=== PATIENT | female | born 1980 ===

== ENCOUNTER 2022-11-01 01:59 | Inpatient (IN) | payer BC, OTHER ==
[2022-11-01 06:38] VITALS: BMI 31.4
[2022-11-01] MEDS ORDERED: HYDROcodone/Acetaminophen 5/325 mg Tablet PO PRN (09:29)
[2022-11-01] MEDS ORDERED: Nortriptyline HCl 25 MG CAP PO PRN (09:41)
[2022-11-01] MEDS ORDERED: predniSONE 20 MG TAB PO SCH (10:15)
[2022-11-01] MEDS ORDERED: Sodium Chloride 0.9% 1,000 ML IV SCH (10:15)
[2022-11-01] MEDS ORDERED: Lorazepam 2 MG/ML VIAL IM PRN (10:49)
[2022-11-01] MEDS ORDERED: Lorazepam 1 MG TAB PO PRN (10:49)
[2022-11-01] MEDS ORDERED: Electrolyte Replacement Protocol 1 EACH FS SCH (11:00)
[2022-11-01] MEDS: cefTRIAXone\\ROCEPHIN 1 GM in Sodium Chloride 0.9% 100 ML IVPB SCH (11:07)
[2022-11-01] MEDS: Thiamine HCl 200 MG/2 ML VIAL SLOW IVP SCH (11:16)
[2022-11-01] MEDS: Lorazepam 1 MG TAB PO SCH ×3 (11:18→23:36)
[2022-11-01 11:49] LABS: Bilirubin, Direct 8.5 mg/dL (0.1-0.3); Phosphorus 4.3 mg/dL (2.3-4.7)
[2022-11-01 11:51] LABS: ALT (SGPT) 49 U/L (8-55); AST (SGOT) 136 U/L (5-34); Albumin 2.2 g/dL (3.5-5.0); Alcohol Less than 10.0 mg/dL (Less than 10); Alkaline Phosphatase 330 U/L (40-110); Anion Gap 13 mmol/L (10-20); BUN (Urea Nitrogen) Less than 4 mg/dL (7.0-18.7); Bilirubin, Total 10.6 mg/dL (0.2-1.2); Calc. Creatinine Clearance 151 mL/min (70-130); Calcium 8.1 mg/dL (7.8-10.44); Carbon Dioxide 26 mmol/L (22-29); Chloride 102 mmol/L (98-107); Estimated GFR 111; Glucose 116 mg/dL (70-105); Magnesium 1.7 mg/dL (1.6-2.6); Potassium 2.9 mmol/L (3.5-5.1); Protein, Total 5.2 g/dL (6.0-8.3); Sodium 138 mmol/L (136-145)
[2022-11-01 11:54] LABS: #Monocytes 0.1 thou/uL (0.11-0.59); #Neutrophils 2.5 thou/uL (1.40-6.50); %Lymphocytes 23.3 % (21.0-51.0); %Monocytes 3.8 % (0.0-10.0); %Neutrophils 72.6 % (42.0-75.0); Hematocrit 34.8 % (36.0-47.0); Hemoglobin 12.2 g/dL (12.0-16.0); Mean Corpuscular HGB CONC 35.1 g/dL (32.0-36.0); Mean Corpuscular Hemoglobin 33.9 pg (27.0-31.0); Mean Corpuscular Volume 96.7 fl (78.0-98.0); Mean Platelet Volume 11.2 fL (7.4-10.4); RBC Distribution Width 15.9 % (11.5-14.5); White Blood Cell (WBC) Count 3.4 10x3/uL (4.8-10.8)
[2022-11-01 11:55] LABS: INR-International Normal Ratio 1.9; Prothrombin Time 22.2 sec (12.0-14.7)
[2022-11-01 11:56] LABS: PTT 49.2 sec (22.9-36.1)
[2022-11-01 11:58] LABS: Platelet Count 64 10x3/uL (130-400)
[2022-11-01] MEDS ORDERED: Cyanocobalamin 1000 MCG/ML VIAL IM SCH (12:00)
[2022-11-01 12:08] LABS: HBCM Index 0.12 S/CO (0-0.79); HBSAg Index 0.28 S/CO (0-0.99); Hep A IgM AB Non-Reactive S/CO (NonReactive); Hep A IgM S/CO 0.28 S/CO (0-0.79); Hep B Surf Ag Non-Reactive S/CO (NonReactive); Hep C IgG Ab Non-Reactive S/CO (NonReactive); Hep C Index 0.12 S/CO (0-0.79); Hepatitis B Core IgM Abs Non-Reactive S/CO (NonReactive)
[2022-11-01 12:46] LABS: Bacteria/HPF None Seen HPF (None Seen); Bilirubin 2+ (Negative); Blood, Urine Negative (Negative); CAUTI Indications for Culture Dysuria,urgency,freq; Clarity Clear (Clear); Glucose, Urine (Dipstick) Normal (Negative); Ketone, Urine Negative (Negative); Leukocyte Negative Leu/uL (Negative); Nitrite Negative (Negative); Protein, Urine (Dipstick) Negative (Neg-Trace); RBC/HPF 0-3 HPF (0-3); Specific Gravity, Urine 1.024 (1.002-1.036); Squamous Epithelial 0-3 HPF (0-3); Urobilinogen Normal mg/dL (Less than 2); WBC/HPF 0-3 HPF (0-3)
[2022-11-01 12:54] LABS: Urine Culture Reflex No No
[2022-11-01] MEDS ORDERED: Magnesium 2 GM/50 ML(in water) 2 GM in Premix Bag 1 BAG IVPB SCH (14:00)
[2022-11-01] MEDS: Multivitamins, Adult 10 ML, Folic Acid 1 MG, Thiamine HCl 100 MG in Dextrose 5 %-0.45 %... IV SCH (14:54)
[2022-11-01] MEDS: Potassium Chloride 20 MEQ TAB PO SCH ×2 (14:54→17:31)
[2022-11-01] MEDS: Famotidine 20 MG TAB PO SCH (21:39)
[2022-11-01] MEDS: Metoprolol Tartrate 25 MG TAB PO SCH (21:43)
[2022-11-02] MEDS: Lorazepam 1 MG TAB PO SCH ×4 (05:02→22:46)
[2022-11-02 05:56] LABS: #Monocytes 0.5 thou/uL (0.11-0.59); #Neutrophils 3.5 thou/uL (1.40-6.50); %Lymphocytes 26.3 % (21.0-51.0); %Monocytes 8.8 % (0.0-10.0); %Neutrophils 64.5 % (42.0-75.0); Hematocrit 29.7 % (36.0-47.0); Hemoglobin 10.4 g/dL (12.0-16.0); Mean Corpuscular Hemoglobin 33.7 pg (27.0-31.0); Mean Corpuscular Volume 96.1 fl (78.0-98.0); Mean Platelet Volume 10.7 fL (7.4-10.4); RBC Distribution Width 16.1 % (11.5-14.5); Red Blood Cell (RBC) Count 3.09 mill/uL (4.20-5.40); White Blood Cell (WBC) Count 5.5 10x3/uL (4.8-10.8)
[2022-11-02 06:03] LABS: Platelet Count 65 10x3/uL (130-400)
[2022-11-02 06:29] LABS: ALT (SGPT) 40 U/L (8-55); AST (SGOT) 107 U/L (5-34); Albumin 1.7 g/dL (3.5-5.0); Alkaline Phosphatase 261 U/L (40-110); Anion Gap 9 mmol/L (10-20); BUN (Urea Nitrogen) Less than 4 mg/dL (7.0-18.7); Bilirubin, Total 9.4 mg/dL (0.2-1.2); Calc. Creatinine Clearance 168 mL/min (70-130); Calcium 7.6 mg/dL (7.8-10.44); Carbon Dioxide 25 mmol/L (22-29); Chloride 107 mmol/L (98-107); Estimated GFR 114; Globulin 2.6 g/dL (2.4-3.5); Glucose 92 mg/dL (70-105); Protein, Total 4.3 g/dL (6.0-8.3); Sodium 138 mmol/L (136-145)
[2022-11-02] MEDS ORDERED: Electrolyte Replacement Protocol 1 EACH FS ONE (07:37)
[2022-11-02] MEDS ORDERED: Potassium Chloride 20 MEQ TAB PO SCH (08:00)
[2022-11-02] MEDS ORDERED: predniSONE 20 MG TAB PO SCH (08:00)
[2022-11-02 09:25] LABS: INR-International Normal Ratio 1.9; Prothrombin Time 22.6 sec (12.0-14.7)
[2022-11-02 09:26] LABS: PTT 95.2 sec (22.9-36.1)
[2022-11-02] MEDS: Metoprolol Tartrate 25 MG TAB PO SCH ×2 (09:33→21:05)
[2022-11-02] MEDS: Topiramate 25 MG TAB PO SCH (09:35)
[2022-11-02] MEDS: Famotidine 20 MG TAB PO SCH ×2 (09:36→21:07)
[2022-11-02] MEDS: Folic Acid 1 MG TAB PO SCH (09:36)
[2022-11-02] MEDS: Multivit, Therapeutic 1 TAB PO SCH (09:36)
[2022-11-02] MEDS: prednisoLONE 10 MG ODT TAB PO SCH (09:36)
[2022-11-02] MEDS: Escitalopram Oxalate 20 mg Tablet PO SCH (09:36)
[2022-11-02] MEDS ORDERED: Lorazepam 1 MG TAB PO PRN (10:50)
[2022-11-02] MEDS ORDERED: Furosemide 20 MG/2 ML VIAL SLOW IVP SCH (12:45)
[2022-11-02] MEDS: cefTRIAXone\\ROCEPHIN 1 GM in Sodium Chloride 0.9% 100 ML IVPB SCH (12:59)
[2022-11-02] MEDS: Thiamine HCl 200 MG/2 ML VIAL SLOW IVP SCH (13:00)
[2022-11-02] MEDS: Multivitamins, Adult 10 ML, Folic Acid 1 MG, Thiamine HCl 100 MG in Dextrose 5 %-0.45 %... IV SCH (15:27)
[2022-11-02] MEDS ORDERED: Polyethylene Glycol 3350 17 GM Packet PO SCH (17:45)
[2022-11-02] MEDS ORDERED: Ondansetron PF 4 MG/2 ML Vial IVP PRN (17:46)
[2022-11-03 05:00] LABS: #Monocytes 0.5 thou/uL (0.11-0.59); #Neutrophils 3.6 thou/uL (1.40-6.50); %Basophils 0.2 % (0.0-1.0); %Lymphocytes 28.8 % (21.0-51.0); %Monocytes 7.7 % (0.0-10.0); %Neutrophils 61.9 % (42.0-75.0); Hematocrit 30.3 % (36.0-47.0); Hemoglobin 10.5 g/dL (12.0-16.0); Mean Corpuscular HGB CONC 34.7 g/dL (32.0-36.0); Mean Corpuscular Volume 98.1 fl (78.0-98.0); Mean Platelet Volume 10.8 fL (7.4-10.4); RBC Distribution Width 16.7 % (11.5-14.5); Red Blood Cell (RBC) Count 3.09 mill/uL (4.20-5.40); White Blood Cell (WBC) Count 5.9 10x3/uL (4.8-10.8)
[2022-11-03 05:08] LABS: Platelet Count 72 10x3/uL (130-400)
[2022-11-03 05:10] LABS: INR-International Normal Ratio 1.5; PTT 36.6 sec (22.9-36.1)
[2022-11-03 05:22] LABS: ALT (SGPT) 38 U/L (8-55); AST (SGOT) 105 U/L (5-34); Albumin 1.7 g/dL (3.5-5.0); Alkaline Phosphatase 254 U/L (40-110); Anion Gap 11 mmol/L (10-20); BUN (Urea Nitrogen) Less than 4 mg/dL (7.0-18.7); Bilirubin, Total 11.5 mg/dL (0.2-1.2); Calc. Creatinine Clearance 151 mL/min (70-130); Calcium 7.8 mg/dL (7.8-10.44); Carbon Dioxide 24 mmol/L (22-29); Chloride 108 mmol/L (98-107); Estimated GFR 111; Globulin 2.7 g/dL (2.4-3.5); Glucose 79 mg/dL (70-105); Protein, Total 4.4 g/dL (6.0-8.3); Sodium 140 mmol/L (136-145)
[2022-11-03] MEDS: Lorazepam 1 MG TAB PO SCH (05:25)
[2022-11-03] MEDS ORDERED: Potassium Chloride 20 MEQ TAB PO SCH ×2 (08:00)
[2022-11-03] MEDS: Famotidine 20 MG TAB PO SCH ×2 (08:26→21:14)
[2022-11-03] MEDS: Topiramate 25 MG TAB PO SCH (08:26)
[2022-11-03] MEDS: Multivit, Therapeutic 1 TAB PO SCH (08:26)
[2022-11-03] MEDS: Folic Acid 1 MG TAB PO SCH (08:26)
[2022-11-03] MEDS: Escitalopram Oxalate 20 mg Tablet PO SCH (08:27)
[2022-11-03] MEDS: prednisoLONE 10 MG ODT TAB PO SCH (08:30)
[2022-11-03] MEDS: Polyethylene Glycol 3350 17 GM Packet PO SCH (08:30)
[2022-11-03] MEDS: Metoprolol Tartrate 25 MG TAB PO SCH ×2 (08:31→21:13)
[2022-11-03] MEDS: Furosemide 20 MG/2 ML VIAL SLOW IVP SCH (08:35)
[2022-11-03] MEDS ORDERED: Furosemide 20 MG/2 ML VIAL SLOW IVP SCH (09:00)
[2022-11-03] MEDS ORDERED: Lorazepam 1 MG TAB PO PRN (10:50)
[2022-11-03] MEDS: cefTRIAXone\\ROCEPHIN 1 GM in Sodium Chloride 0.9% 100 ML IVPB SCH (11:36)
[2022-11-03] MEDS: Lorazepam 0.5 MG TAB PO SCH ×3 (11:36→22:21)
[2022-11-03] MEDS: Thiamine HCl 200 MG/2 ML VIAL SLOW IVP SCH (12:44)
[2022-11-03] MEDS: Multivitamins, Adult 10 ML, Folic Acid 1 MG, Thiamine HCl 100 MG in Dextrose 5 %-0.45 %... IV SCH (12:44)
[2022-11-03] MEDS ORDERED: Bisacodyl 5 MG TAB PO PRN (22:13)
[2022-11-04] MEDS: Lorazepam 0.5 MG TAB PO SCH (04:54)
[2022-11-04 05:26] LABS: Hematocrit 31.2 % (36.0-47.0); Hemoglobin 10.7 g/dL (12.0-16.0)
[2022-11-04 05:49] LABS: ALT (SGPT) 39 U/L (8-55); AST (SGOT) 112 U/L (5-34); Albumin 1.8 g/dL (3.5-5.0); Alkaline Phosphatase 249 U/L (40-110); Anion Gap 11 mmol/L (10-20); BUN (Urea Nitrogen) Less than 4 mg/dL (7.0-18.7); Bilirubin, Total 12.8 mg/dL (0.2-1.2); Calc. Creatinine Clearance 142 mL/min (70-130); Calcium 7.6 mg/dL (7.8-10.44); Carbon Dioxide 22 mmol/L (22-29); Chloride 107 mmol/L (98-107); Estimated GFR 107; Globulin 2.8 g/dL (2.4-3.5); Glucose 67 mg/dL (70-105); Potassium 2.7 mmol/L (3.5-5.1); Protein, Total 4.6 g/dL (6.0-8.3); Sodium 137 mmol/L (136-145)
[2022-11-04 06:25] LABS: INR-International Normal Ratio 1.5; Prothrombin Time 18.3 sec (12.0-14.7)
[2022-11-04] MEDS ORDERED: Potassium Chloride 20 MEQ TAB PO SCH (08:00)
[2022-11-04] MEDS: Escitalopram Oxalate 20 mg Tablet PO SCH (08:47)
[2022-11-04] MEDS: Furosemide 20 MG/2 ML VIAL SLOW IVP SCH (08:47)
[2022-11-04] MEDS: Multivit, Therapeutic 1 TAB PO SCH (08:47)
[2022-11-04] MEDS: prednisoLONE 10 MG ODT TAB PO SCH (08:47)
[2022-11-04] MEDS: Folic Acid 1 MG TAB PO SCH (08:47)
[2022-11-04] MEDS: Metoprolol Tartrate 25 MG TAB PO SCH ×2 (08:47→20:18)
[2022-11-04] MEDS: Topiramate 25 MG TAB PO SCH (08:47)
[2022-11-04] MEDS: Polyethylene Glycol 3350 17 GM Packet PO SCH (08:47)
[2022-11-04] MEDS: Potassium Chloride 20 MEQ TAB PO SCH ×3 (09:24→17:59)
[2022-11-04] MEDS: cefTRIAXone\\ROCEPHIN 1 GM in Sodium Chloride 0.9% 100 ML IVPB SCH (10:05)
[2022-11-04] MEDS: Thiamine 100 MG TAB PO SCH (10:05)
[2022-11-04] MEDS ORDERED: Lorazepam 0.5 MG TAB PO PRN (10:50)
[2022-11-04] MEDS: Multivitamins, Adult 10 ML, Folic Acid 1 MG, Thiamine HCl 100 MG in Dextrose 5 %-0.45 %... IV SCH (13:05)
[2022-11-04 21:27] LABS: Potassium 3.7 mmol/L (3.5-5.1)
[2022-11-05 05:51] LABS: #Monocytes 0.4 thou/uL (0.11-0.59); #Neutrophils 3.3 thou/uL (1.40-6.50); %Basophils 0.2 % (0.0-1.0); %Eosinophils 0.3 % (0.0-10.0); %Lymphocytes 34.1 % (21.0-51.0); %Neutrophils 53.8 % (42.0-75.0); Hematocrit 31.9 % (36.0-47.0); Hemoglobin 10.8 g/dL (12.0-16.0); Mean Corpuscular HGB CONC 33.9 g/dL (32.0-36.0); Mean Corpuscular Hemoglobin 33.9 pg (27.0-31.0); Mean Platelet Volume 10.2 fL (7.4-10.4); Red Blood Cell (RBC) Count 3.19 mill/uL (4.20-5.40); White Blood Cell (WBC) Count 6.1 10x3/uL (4.8-10.8)
[2022-11-05 06:19] LABS: Platelet Count 95 10x3/uL (130-400)
[2022-11-05 06:31] LABS: INR-International Normal Ratio 1.3
[2022-11-05 06:32] LABS: PTT 32.5 sec (22.9-36.1)
[2022-11-05 06:35] LABS: ALT (SGPT) 44 U/L (8-55); AST (SGOT) 119 U/L (5-34); Albumin 1.7 g/dL (3.5-5.0); Alkaline Phosphatase 234 U/L (40-110); Anion Gap 10 mmol/L (10-20); BUN (Urea Nitrogen) Less than 4 mg/dL (7.0-18.7); Calc. Creatinine Clearance 171 mL/min (70-130); Carbon Dioxide 22 mmol/L (22-29); Chloride 110 mmol/L (98-107); Estimated GFR 115; Glucose 68 mg/dL (70-105); Potassium 3.5 mmol/L (3.5-5.1); Protein, Total 4.7 g/dL (6.0-8.3); Sodium 138 mmol/L (136-145)
[2022-11-05] MEDS ORDERED: Potassium Chloride 20 MEQ TAB PO SCH (08:00)
[2022-11-05] MEDS: Furosemide 20 MG/2 ML VIAL SLOW IVP SCH (08:30)
[2022-11-05] MEDS: Metoprolol Tartrate 25 MG TAB PO SCH ×2 (08:31→20:47)
[2022-11-05] MEDS: Multivit, Therapeutic 1 TAB PO SCH (08:31)
[2022-11-05] MEDS: Topiramate 25 MG TAB PO SCH (08:31)
[2022-11-05] MEDS: Escitalopram Oxalate 20 mg Tablet PO SCH (08:31)
[2022-11-05] MEDS: Folic Acid 1 MG TAB PO SCH (08:31)
[2022-11-05] MEDS: prednisoLONE 10 MG ODT TAB PO SCH (08:33)
[2022-11-05] MEDS: cefTRIAXone\\ROCEPHIN 1 GM in Sodium Chloride 0.9% 100 ML IVPB SCH (11:56)
[2022-11-05] MEDS: Thiamine 100 MG TAB PO SCH (11:57)
[2022-11-05] MEDS: Multivitamins, Adult 10 ML, Folic Acid 1 MG, Thiamine HCl 100 MG in Dextrose 5 %-0.45 %... IV SCH (12:22)
[2022-11-06 07:07] LABS: INR-International Normal Ratio 1.3; Prothrombin Time 16.2 sec (12.0-14.7)
[2022-11-06 07:08] LABS: PTT 30.4 sec (22.9-36.1)
[2022-11-06 07:21] LABS: ALT (SGPT) 48 U/L (8-55); AST (SGOT) 128 U/L (5-34); Albumin 1.8 g/dL (3.5-5.0); Alkaline Phosphatase 230 U/L (40-110); Anion Gap 9 mmol/L (10-20); BUN (Urea Nitrogen) Less than 4 mg/dL (7.0-18.7); Bilirubin, Total 17.5 mg/dL (0.2-1.2); Calc. Creatinine Clearance 160 mL/min (70-130); Calcium 8.1 mg/dL (7.8-10.44); Carbon Dioxide 26 mmol/L (22-29); Chloride 106 mmol/L (98-107); Estimated GFR 113; Globulin 3.2 g/dL (2.4-3.5); Glucose 74 mg/dL (70-105); Sodium 138 mmol/L (136-145)
[2022-11-06] MEDS ORDERED: Potassium Chloride 20 MEQ TAB PO SCH (08:00)
[2022-11-06] MEDS ORDERED: Magnesium Oxide 400 MG TAB PO SCH (08:30)
[2022-11-06] MEDS ORDERED: Potassium Bicarbonate/Cit Ac 20 MEQ TAB PO SCH (08:30)
[2022-11-06] MEDS: Thiamine 100 MG TAB PO SCH (09:08)
[2022-11-06] MEDS: Folic Acid 1 MG TAB PO SCH (09:09)
[2022-11-06] MEDS: Metoprolol Tartrate 25 MG TAB PO SCH (09:09)
[2022-11-06] MEDS: Escitalopram Oxalate 20 mg Tablet PO SCH (09:09)
[2022-11-06] MEDS: Multivit, Therapeutic 1 TAB PO SCH (09:09)
[2022-11-06] MEDS: Topiramate 25 MG TAB PO SCH (09:09)
[2022-11-06] MEDS: Furosemide 20 MG/2 ML VIAL SLOW IVP SCH (09:09)
[2022-11-06] MEDS: cefTRIAXone\\ROCEPHIN 1 GM in Sodium Chloride 0.9% 100 ML IVPB SCH (11:31)
[2022-11-06 12:12] VITALS: BP 95/68; TEMP 97.4
[2022-11-06] MEDS: prednisoLONE 10 MG ODT TAB PO SCH (15:14)
== END 2022-11-06 14:41 | disposition home or self-care (01) | DRG 433 ==
LOC: SJJU 05:57 → T4-A 11-06 01:35
PROVIDERS: ADMIT Student in an Organized Health Care Education/Training Program; ATTEND Internal Medicine
DX: K70.10 Alcoholic hepatitis without ascites (principal); E87.1 Hypo-osmolality and hyponatremia; N39.0 Urinary tract infection, site not specified; I10 Essential (primary) hypertension; E78.5 Hyperlipidemia, unspecified; E87.6 Hypokalemia; G40.909 Epilepsy, unspecified, not intractable, without status epilepticus; K52.9 Noninfective gastroenteritis and colitis, unspecified; E88.09 Other disorders of plasma-protein metabolism, not elsewhere classified; F10.20 Alcohol dependence, uncomplicated; D64.9 Anemia, unspecified; Z88.1 Allergy status to other antibiotic agents; Z88.2 Allergy status to sulfonamides; Z79.899 Other long term (current) drug therapy; Z90.49 Acquired absence of other specified parts of digestive tract; Z98.890 Other specified postprocedural states
CPT/HCPCS: 36415; 36416; 80053; 80074; 80307; 81001; 82248; 83735; 83880; 84100; 85014; 85018; 85025; 85610; 85730; 87040; 93306; J0696; J1650; J1940; J2405; J3411; J3420; J3475; J3490; J7042; J7050; J7512